=== PATIENT | male | born 1980 | race Two or more races ===

== ENCOUNTER 2016-10-30 07:40 | Emergency (ER) | payer OTHER ==
[2016-10-30 08:04] VITALS: BP 122/79; PULSE 68; RESP 18; TEMP 97.7; O2SAT 95
--- NOTE | 2016-10-30 08:23 | UCPHY ---
H & P Time Seen by Provider: 10/30/16 08:08 Patient Type: New HPI/ROS: 35-year-old male presents complaining of right ear fullness, states he has had a cold for about 1 week and several fever blisters on his lips which she states is quite common for him following a cold. He had been using Sudafed but he stopped taking that 3 days ago. This morning he woke up with right ear fullness and dizziness. Past Medical/Surgical History: Noncontributory Social History: Drinks alcohol socially, denies drug use Smoking Status: Never smoked Physical Exam: 35-year-old male Alert and oriented nontoxic appearance, no acute distress afebrile Atraumatic normocephalic Extraocular muscles intact, anicteric, no nystagmus TMs clear bilaterally no erythema no bulging Nares mild yellowish discharge Oropharynx mild erythema no tonsillar swelling no exudate no uvular deviation, tolerating own secretions Neck supple no lymphadenopathy Lungs clear to auscultation bilaterally Heart regular rate and rhythm Abdomen normoactive bowel sounds soft nontender Extremities no cyanosis clubbing or edema Skin no rash Constitutional: Initial Vital Signs Temperature (C) 36.5 C 10/30/16 08:02 Heart Rate 68 10/30/16 08:02 Respiratory Rate 18 10/30/16 08:02 Blood Pressure 122/79 H 10/30/16 08:02 O2 Sat (%) 95 10/30/16 08:02 O2 Delivery Mode Room Air Allergies/Adverse Reactions: No Known Allergies Allergy (Unverified 10/30/16 08:02) Home Medications: Medication Instructions Recorded Meclizine HCl [Meclizine HCl 25 mg 25 mg PO TID PRN #30 tab 10/30/16 (RX,OTC)] Medical Decision Making ED Course/Re-evaluation: Patient seen and evaluated for ear pressure, cold symptoms of greater than 1 week duration, vertiginous symptoms that began this morning Physical exam as documented Differential diagnosis considered Otitis media, labyrinthitis, vertigo, URI Impression Mild labyrinthitis following URI Plan Rest, drink plenty of fluids, decongestant, meclizine as needed for vertiginous symptoms Return if worsening Follow-up primary care physician Departure - Departure Disposition: Home, Routine, Self-Care Clinical Impression: Acute viral labyrinthitis Condition: Good Instructions: Labyrinthitis (ED) Additional Instructions: Rest, drink lots of liquids, use a decongestant such as Sudafed. I am prescribing you a medicine called Antivert also called meclizine, you may take this as often as every 8 hours for symptoms that are like vertigo such as room spinning. Referrals: [facility] [Provider Group] - As per Instructions Prescriptions: Meclizine HCl [Meclizine HCl 25 mg (RX,OTC)] 25 mg PO TID PRN #30 tab PRN Reason: Dizziness - PQRS PQRS Measurement: na
== END 2016-10-30 08:31 | disposition home or self-care (01) ==
LOC: CED 07:40
DX: H83.01 Labyrinthitis, right ear (principal)
CPT/HCPCS: 99203-PO; G0463-PO